=== PATIENT | female | born 1990 | race Caucasian/White ===

== ENCOUNTER 2022-04-19 11:40 | Outpatient (CLI) | payer OTHER, SELFPAY ==
[2022-04-19 12:15] VITALS: PULSE 30; O2SAT 82
[2022-04-19 12:17] VITALS: BP 121/56; PULSE 113; O2SAT 97
[2022-04-19 12:22] VITALS: PULSE 111; O2SAT 98
[2022-04-19 12:27] VITALS: BMI 31.6
[2022-04-19 12:30] VITALS: BP 121/56; PULSE 112; TEMP 37.3; O2SAT 97
[2022-04-19] MEDS: Ondansetron 4 MG/2 ML Vial IV (13:14)
[2022-04-19] MEDS: Lactated Ringers 1,000 ML 999 ML IV (13:14)
[2022-04-19 13:42] LABS: Color, Urine Yellow (Yellow); Glucose, Dipstick Normal (Normal); Ketone-Dipstick 50 mg/dl (Negative); Leukocyte Esterase-Dipstick Negative /ul (Negative); Nitrite-Dipstick Negative (Negative); Occult Blood-Urine Negative /ul (Negative); Protein-Dipstick Negative (Negative); Red Blood Cells-Urine 0 SEEN /hpf (0-5); Specific Gravity, Urine 1.015 (1.002-1.030); Urine Bilirubin Dipstick Negative (Negative); Urine Clarity Clear (Clear); Urine Urobilinogen Normal (Normal); Urine pH 6.5 (5.0 - 8.0)
[2022-04-19 13:51] LABS: Squamous Epithelial Cells - UA 0-5 SEEN /hpf (5-10); White Blood Cells 0-5 SEEN /hpf (0-5)
[2022-04-19 13:52] LABS: Bacteria 2+ /hpf (None Seen); Mucous, Urine 2+ /hpf (<or=2+)
--- NOTE | 2022-04-20 13:25 | OB.TRI.NOTE ---
HPI - General General Date of Admission: 04/20/22 Date of Service: 04/20/22 Chief Complaint: nausea and vomiting HPI Narrative URI WRAY, is a 31 F who presents at 21 w 6 d with N/V. Has had several episodes of N/V. No known sick contacts. Some vaginal discomfort. No ctx, cramping, vb, lof. +FM. PFSH PFSH Home Medications vitamins-iron fumarate 65 mg iron-folic acid 1 mg tablet 1 tab PO DAILY 04/19/22 [History Last Taken 04/18/22 10:00] Allergy/AdvReac Type Severity Reaction Status Date / Time No Known Allergies Allergy Verified 04/19/22 12:29 NST FHR Rate Baby A Baseline: 155 Uterine Activity:: no ctx's Assessment & Plan (1) 21 weeks gestation of : (2) Nausea/vomiting in : PLAN: - Patient's symptoms have improved after IV hydration and IV Zofran. Likely gastroenteritis. Passed PO challenge. Discharge home and to push fluid and stick to bland diet
== END 2022-04-19 15:07 | disposition home or self-care (01) ==
LOC: WPOUT 11:54 → WP 11:56
PROVIDERS: Visit Provider Obstetrics & Gynecology
DX: O21.2 Late vomiting of pregnancy (principal); Z3A.21 21 weeks gestation of pregnancy
CPT/HCPCS: 96374; 96361; 59050; 81001; 87077; 87086; 87088; 87186; J7120; J2405

== ENCOUNTER 2022-10-30 16:19 | Emergency (ER) | payer OTHER, SELFPAY ==
[2022-10-30 16:19] VITALS: BP 133/86; PULSE 73; RESP 14; TEMP 36.1; O2SAT 100; BMI 30.9
--- NOTE | 2022-10-30 16:27 | EKG12_ITS ---
Test Reason : CP Blood Pressure : / mmHG Vent. Rate : 067 BPM Atrial Rate : 067 BPM P-R Int : 122 ms QRS Dur : 088 ms QT Int : 384 ms P-R-T Axes : 037 000 013 degrees QTc Int : 405 ms Normal sinus rhythm with sinus arrhythmia Normal ECG Confirmed by MATILDA VAZ, JULIO C ([id number]), international editorial producer URI BEJARANO ([id number]) on 11/01/2022 10:17:45 AM Referred By: Confirmed By:JULIO C GREY MD
--- NOTE | 2022-10-30 16:28 | EDS_ITS ---
HPI History of Present Illness Chief Complaint: Chest Pain Informant: patient Onset/Context/Timing Onset: Hours Activity at onset: gradual Timing: Waxes and wanes Quality: Positive for Pressure Location: Left Chest Current Severity: Mild Maximum Severity: Moderate Narrative Narrative: Patient presents secondary left-sided chest pain. She states about an hour and 1/2 to 2 hours ago she developed pressure and squeezing sensation along the lower sternum, under the left breast, and down her left arm. She does not feel short of breath. She denies personal cardiac history. Her grandfather has had cardiac disease. Patient is 2 months but has not had any significant problems with her blood pressure or with lower extremity edema. She is breast- feeding but states she has not noticed any breast redness or pain. PFSH PFSH Medical History no medical history no medical history Home Medications vitamins-iron fumarate 65 mg iron-folic acid 1 mg tablet 1 tab PO DAILY 04/19/22 [History Last Taken 04/18/22 10:00] Allergy/AdvReac Type Severity Reaction Status Date / Time No Known Allergies Allergy Verified 10/30/22 16:19 Social History Smoking Status: Never smoker ROS ROS ED Constitutional Constitutional ED: Denies chills or fever(s) Eyes Eyes: Denies change in vision or discharge from eye(s) ENT ENT ED: Denies discharge from eye(s), rhinorrhea or sore throat Cardiovascular Cardiovascular: Reports chest pain; Denies palpitations Respiratory/Chest Respiratory/Chest: Denies cough or dyspnea Gastrointestinal Gastrointestinal: Denies abdominal pain, nausea or vomiting Genitourinary Genitourinary ED: Denies dysuria Musculoskeletal Musculoskeletal: Denies back pain or extremity pain Integumentary Denies Abrasions or rash Neurologic Neurologic: Denies headache(s) or weakness Psychiatric Psychiatric: Denies anxiety or depression Allergic/Immunologic Allergic/Immunologic ED: Denies lip swelling or urticaria EXAM Physical Exam Const Vital Signs: 10/30/22 16:19 10/30/22 16:45 10/30/22 16:45 Temperature 97 F L Temperature Source Temporal Pulse Rate 73 Respiratory Rate 14 Respiratory Effort Normal Non-Labored Blood Pressure 133/86 H Blood Pressure Mean 101 Pulse Ox 100 Oxygen Delivery Method Room Air Room Air 10/30/22 18:34 Temperature Temperature Source Pulse Rate 60 Respiratory Rate 20 H Respiratory Effort Blood Pressure 104/65 Blood Pressure Mean 78 Pulse Ox 95 Oxygen Delivery Method Room Air Positive well nourished and well developed General Appearance ED: well developed HEENT Reports normocephalic and head/scalp atraumatic Eyes PERRL and EOMs intact bilaterally Neck supple Chest Wall inspection of chest normal and palpation of chest normal Resp normal respiratory effort and clear to auscultation bilaterally Cardio regular rate and regular rhythm GI normal to inspection, nondistended, normoactive bowel sounds Palpation: soft Back/Spine no CVA tenderness Back/Spine Narrative: No cervical or thoracic tenderness. 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 EKG obtained to evaluate for cardiac arrhythmia/ischemia. Chest x-ray obtained to evaluate for acute lung pathology, cardiac size, or mediastinal abnormality. Labwork obtained to evaluate for leukocytosis, anemia, and electrolyte derangement. Lab Data Attestation: I reviewed the patient's lab results. Labs: Laboratory Results - last 24 hr 10/30/22 10/30/22 10/30/22 16:42 16:42 16:42 WBC 4.9 RBC 4.80 Hgb 13.8 Hct 40.5 MCV 84.4 MCH 28.8 MCHC 34.1 RDW Std Deviation 43.3 RDW Coeff of Moises 14.0 Plt Count 273 MPV 10.1 Immature Gran % (Auto) 0.200 Neut % (Auto) 53.6 Lymph % (Auto) 35.7 Lane % (Auto) 6.8 Eos % (Auto) 2.5 Baso % (Auto) 1.2 H Absolute Neuts (auto) 2.6 Absolute Lymphs (auto) 1.73 Nucleated RBC % 0 D-Dimer Quant (PE/DVT) Sodium 139 Potassium 3.7 Chloride 106 Carbon Dioxide 25.0 Anion Gap 8 BUN 11 Creatinine 0.77 Estim Creat Clear Calc 100.92 Est GFR (MDRD) Af Amer 114 Est GFR (MDRD) Non-Af 94 BUN/Creatinine Ratio 14.3 Glucose 113 H Calcium 9.6 Troponin I High Sens 3 Serum , Qual NEGATIVE 10/30/22 10/30/22 16:42 18:52 WBC RBC Hgb Hct MCV MCH MCHC RDW Std Deviation RDW Coeff of Moises Plt Count MPV Immature Gran % (Auto) Neut % (Auto) Lymph % (Auto) Lane % (Auto) Eos % (Auto) Baso % (Auto) Absolute Neuts (auto) Absolute Lymphs (auto) Nucleated RBC % D-Dimer Quant (PE/DVT) 0.37 Sodium Potassium Chloride Carbon Dioxide Anion Gap BUN Creatinine Estim Creat Clear Calc Est GFR (MDRD) Af Amer Est GFR (MDRD) Non-Af BUN/Creatinine Ratio Glucose Calcium Troponin I High Sens 3 Serum , Qual Radiography Chest X-Ray - ED: 1 View, Read by ED Physician, Normal, Heart, Lungs and Mediastinum Diagnostic Testing: Clinical Impression(s) from Imaging Studies Chest X-Ray 10/30/22 16:45 IMPRESSION: No acute cardiopulmonary disease. Electronically Signed: Loyd Lara MD at 17:15 EDT , EKG Initial EKG: Attestation: I personally reviewed and interpreted this EKG as follows: Interpretation: Sinus Rhythm (Sinus at 67 with no acute ischemia.) Differential Diagnosis Chest pain/SOB: pulmonary embolism Reason(s) PE less likely: Positive for D- Dimer negative, not tachycardic and not hypoxic and ACS ACS: Positive for no evidence of ACS based on cardiac biomarkers and EKG without ischemia Treatment and Re-Evaluation :: CBC and chemistry studies are unremarkable. Initial troponin is 3 with 2-hour repeat troponin also equal to 3. D-dimer is normal at 0.37. Chest x-ray per my interpretation reveals no acute abnormalities. Radiology interpretation is reviewed and agrees. Patient is reassured with work-up and findings. She is appointment to see her doctor tomorrow. Return instructions given. Discharge Plan Triage Chief Complaint: Chest Pain ED Provider: Cassandra Allan Dx/Rx/DC Orders Clinical Impression: Chest pain Instructions: ED Chest Pain, Noncardiac Prescriptions: No Action Prena-Tab 65 mg iron- 1 mg Tablet 1 tab PO DAILY Primary Care Provider: Ward Mercado Referrals: Ward Mercado MD [Primary Care Provider] - Keep Yvette appointment Disposition Disposition: Home, Self Care
--- NOTE | 2022-10-30 16:32 | NURSING ---
NO OLD EKGS
--- NOTE | 2022-10-30 16:45 | RAD_ITS ---
EXAM: XR CHEST, 1 VIEW CLINICAL INDICATION: chest pain TECHNIQUE: Frontal view of the chest. COMPARISON: No relevant prior studies available. FINDINGS: LUNGS AND PLEURAL SPACES: Normal. No consolidation or edema. No pneumothorax. No effusion. HEART: Normal heart size. MEDIASTINUM: No mediastinal or hilar mass. BONES/JOINTS: No acute abnormality. RAD/Chest 1 View (Portable) IMPRESSION: No acute cardiopulmonary disease. Electronically Signed: Loyd Lara MD at 17:15 EDT ,
[2022-10-30 17:10] LABS: Absolute Lymphocyte Count 1.73 X10^3/uL (0.83-4.51); Absolute Neutrophil Count 2.6 X10^3/uL (2.0-7.7); Basophil# 0.06 X10^3/uL; Basophil% 1.2 % (0-1); Eosinophil# 0.12 X10^3/uL; Eosinophils% 2.5 % (0-5); Hematocrit 40.5 % (37-47); Hemoglobin 13.8 g/dL (12.0-15.0); Lymphocyte # 1.73 X10^3/ul (0.83-4.51); Lymphocyte % 35.7 % (19-41); Mean Corp Hgb Conc 34.1 g/dL (32-36); Mean Corpuscular Hgb 28.8 pg (27.0-32.0); Mean Corpuscular Volume 84.4 fL (81-99); Mean Platelet Vol. 10.1 fl (6.2-12.0); Monocyte# 0.33 X10^3/uL; Monocyte% 6.8 % (0-10); NRBC Flagged by Analyzer 0 % (0-5); Neutrophil % 53.6 % (47-70); Platelet Count 273 K/mm3 (150-450); RBC Distribution Width SD 43.3 fl (35.1-43.9); White Blood Count 4.9 K/mm3 (4.4-11.0)
[2022-10-30 17:25] LABS: Internal QC Validated? YES +Cl - CLEAR BKGD; Pregnancy, Serum, hCG Quali. NEGATIVE Negative
[2022-10-30 17:29] LABS: Anion Gap 8 (5-15); BUN 11 mg/dL (7-18); BUN/Creat Ratio 14.3 RATIO (10-20); Calcium,Total 9.6 mg/dL (8.5-10.1); Chloride 106 mmol/L (98-107); Creatinine, Serum 0.77 mg/dL (0.55-1.02); EST Glomerular Filtration Rate 94 mL/min (>60); Est Glom Filt Rate - Afr Amer 114 mL/min (>60); Estimated Creatinine Clearance 100.92 ml/min; Glucose 113 mg/dL (74-106); Potassium 3.7 mmol/L (3.5-5.1); Sodium Level 139 mmol/L (136-145); Troponin-I HS (w/2H Reflex) 3 pg/mL (3.0-54.0)
[2022-10-30 17:35] LABS: D-Dimer Quantitative (DVT/PE) 0.37 FEU/ug/m (0.27-0.49)
[2022-10-30 18:34] VITALS: BP 104/65; PULSE 60; RESP 20; O2SAT 95
[2022-10-30 18:47] LABS: Reflex Troponin-HS? (from REC) Y
[2022-10-30 19:32] LABS: Troponin-I HS 3 pg/mL (3.0-54.0)
[2022-10-30 19:41] VITALS: BP 104/65; PULSE 87; RESP 18; O2SAT 100
== END 2022-10-30 19:42 | disposition home or self-care (01) ==
PROVIDERS: Emergency Provider Emergency Medicine; PCP Family Medicine; Visit Provider Emergency Medicine
DX: R07.9 Chest pain, unspecified (principal)
CPT/HCPCS: 71045; 80048; 84484; 84703; 85025; 85379; 93005; 99284; A4216